=== PATIENT | female | born 1995 | race Caucasian/White ===

== ENCOUNTER 2017-05-16 20:01 | Emergency (ER) | payer MEDICAID, OTHER ==
[2017-05-16 20:01] VITALS: BMI 22.3
[2017-05-16 20:18] VITALS: RESP 16
--- NOTE | 2017-05-16 20:52 | C.PDOC ---
History Of Present Illness 21 year old female presents to ED with complaints of redness, swelling and pain to left foot since this morning. Patient states she went out to eat at restaurant outside yesterday and when she got home she felt "burning sensation to foot", but did not notice any rash. This morning she awoke and noticed rash to area and pain. Denies taking any medication for it, any injury to area. 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 Time Seen by Provider: 05/16/17 20:06 Chief Complaint (Nursing): Lower Extremity Problem/Injury History Per: Patient History/Exam Limitations: no limitations Onset/Duration Of Symptoms: Hrs Current Symptoms Are (Timing): Still Present Severity: Mild Past Medical History Reviewed: Historical Data, Nursing Documentation, Vital Signs Vital Signs: Last Vital Signs Temp 99.0 F 05/16/17 21:06 Pulse 72 05/16/17 21:06 Resp 16 05/16/17 21:06 BP 112/68 05/16/17 21:06 Pulse Ox 99 05/16/17 21:06 - Medical History PMH: No Chronic Diseases Other Surgeries: foot surgery, hx club foot Family History: States: Unknown Family Hx - Social History Hx Alcohol Use: No Hx Substance Use: No - Immunization History Hx Tetanus Toxoid Vaccination: Yes Hx Influenza Vaccination: No Hx Pneumococcal Vaccination: No Review Of Systems Musculoskeletal: Positive for: Foot Pain Skin: Positive for: Rash Physical Exam - Physical Exam Appears: Non-toxic, No Acute Distress Skin: Warm, Dry, Other (crusty erythematous patch to left medial foot with central papule and surrounding swelling) Head: Atraumatic, Normacephalic Eye(s): bilateral: Normal Inspection Neck: Normal ROM Chest: Symmetrical Extremity: Normal ROM, No Tenderness, Deformity (left foot congenital), Other ( see skin) Neurological/Psych: Oriented x3, Normal Speech ED Course And Treatment O2 Sat by Pulse Oximetry: 100 Medical Decision Making Medical Decision Makin21 year old female with rash to left foot appears insect bite in center and surrounding erythema and inflammation and crust. Will treat for cellulitis with Keflex. Tetanus also administered. Patient requests xray to check her bones, history of club foot and 7 surgeries, although denies injury. Foot xray ordered and reviewed with no acute findings. Patient advised on wound care and wound check in few days. Disposition Counseled Patient/Family Regarding: Diagnosis, Need For Followup, Rx Given - Disposition Referrals: Josias Andino MD [Staff Provider] - Disposition: HOME/ ROUTINE Disposition Time: 20:50 Condition: STABLE Additional Instructions: Please keep area clean and dry, may apply antibiotic ointment and bandage, change daily Take antibiotic twice daily as prescribed Take benadryl for any itching or inflammation Take Motrin for pain or inflammation Please follow up with your doctor in few days for wound check or return to ER for any worsening symptoms Prescriptions: Cephalexin [cephalexin] 500 mg PO Q12 #14 cap Instructions: Cellulitis (DC) Forms: [facility] (Armenian) - POA Present On Arrival: None - Clinical Impression Clinical Impression: Cellulitis of left foot
[2017-05-16 21:06] VITALS: BP 112/68; PULSE 72; TEMP 99
[2017-05-16 22:37] VITALS: O2SAT 100
--- NOTE | 2017-05-17 06:41 | RAD ---
PROCEDURE: Left Foot Radiographs. HISTORY: pain and swelling, cellulitis COMPARISON: None. FINDINGS: BONES: No evidence of acute fracture or dislocation. The patient is status post internal fixation at the tarsal bones and tarsal metatarsal base by 4 screws. There is fusion of the tarsal bones seen. JOINTS: This effusion through the metatarsal pharyngeal joints and mild subluxation. SOFT TISSUES: Soft tissue swelling. OTHER FINDINGS: None. IMPRESSION: No evidence of acute fracture or dislocation. For screws seen at the calcaneus, tarsal and tarsal metatarsal joint suggestive of prior internal fixation/fusion.
== END 2017-05-16 21:06 | disposition home or self-care (01) ==
LOC: C.ER 20:01
DX: L03.116 Cellulitis of left lower limb (principal)